=== PATIENT | female | born 1935 | race Caucasian/White ===

== ENCOUNTER 2023-11-16 09:18 | Emergency (ER) | payer MEDICARE, BC, SELFPAY ==
[2023-11-16] VITALS (7 sets, daily range): BP systolic 166–237; BP diastolic 77–95; BMI 21.7
--- NOTE | 2023-11-16 09:30 | ED.GENMED ---
History of Present Illness
General
Chief Complaint: Blood Pressure Problem
Source: patient and ambulance crew
Time Seen by Provider: 11/16/23 09:20
Travel History
Have you had any contact with someone who has COVID-19?: No
Do you have any symptoms of coronavirus? Fever > 100 degrees, chills, cough, shortness of breath, sore throat, loss of taste or smell, muscle aches, or headache?: No
History of Present Illness
History of Present Illness:
87-year-old female with past medical history of dementia, hypertension, hyperlipidemia presenting from [facility] for evaluation of elevated blood pressure this morning, patient also reportedly with some cold/flulike symptoms with patient endorsing
a mild sore throat and EMS reporting that she has had some increased coughing and bodyaches. Patient's history is somewhat limited due to her history of dementia and she is only noting a little bit of a sore throat on the right-hand side during my
evaluation. There is no reported fever. Patient unsure if she was given her blood pressure medication this morning. EMS believes the patient was tested for COVID but overall unsure of the results.
Past History
Past History
ED Past Medical History: HTN, Hypercholesterolemia and Other (Dementia)
ED Past Surgical History: None
Social History
Tobacco: Non-smoker
Alcohol: None
Drug: None
Personal:
Living: alf
Review of Systems
Review of Systems
All Other Systems: ROS reviewed and negative except as documented in HPI and ROS
Phy Exam
Physical Exam
Physical Exam:
GENERAL: Alert , in no apparent distress
EYE: clear conjunctiva b/l
HEAD: NCAT
ENT: o/p clr, mmm. No tonsillar edema or exudates, uvula midline, airway patent, no stridor or trismus
CARDIAC: Regular rate and rhythm .
LUNGS: Clear breath sounds bilaterally, no acute respiratory distress, no wheezes/rales/rhonchi
ABDOMEN: Soft, without focal tenderness, no r/g, no cvat
NEUROLOGICAL: Alert and oriented
SKIN: Warm and dry, skin intact.
MUSCULOSKELETAL: No edema, well perfused.
PSYCH: Normal and appropriate interaction.
Scores
Heart Failure Risk
Heart Failure Risk Score: Not Applicable
Heart Score for Chest Pain Patients
STEMI patient?: Not applicable
Withdrawal Assessment of Alcohol
Withdrawal Assessment Completed?: Not applicable
Course
Orders/Labs/Results
Orders:
Orders
11/16/23 09:29
Amlodipine [Norvasc] 5 mg PO NOW STA
11/16/23 09:30
Electrocardiogram (*1) Urgent
Reason for Study: Hypertension, Benign
EKG- Treatment ONCE
11/16/23 09:35
COVID-19 Antigen Urgent
Source: Nasal Swab
Complete Blood Count/With Diff Urgent
Comprehensive Metabolic Panel Urgent
Influenza A+B Rapid Molecular Urgent
[facility] Source: Nasal Swab
Specimen Description:
Abnormal Lab Results
11/16/23
09:35
WBC 4.3 L 10^3/uL
(4.8-10.8)
MCH 32.0 H pg
(27.0-31.0)
Carbon Dioxide 33 H mmol/L
(22-30)
BUN 21 H mg/dl
(7-17)
AST 49 H U/L
(14-36)
11/16/23 09:35
11/16/23 09:35
Vital Signs
Initial and Last Documented VS:
Initial Vital Signs
Temp Pulse Resp BP Pulse Ox
98.2 F 99 18 237/95 95
11/16/23 09:21 11/16/23 09:21 11/16/23 09:21 11/16/23 09:21 11/16/23 09:21
Last Documented Vital Signs
Temp Pulse Resp BP Pulse Ox
98.2 F 99 37 168/95 95
11/16/23 09:21 11/16/23 13:00 11/16/23 10:47 11/16/23 12:00 11/16/23 12:30
MDM/Problems Addressed
Differential Diagnosis Includes:
Asymptomatic hypertension, less concern for hypertensive urgency/emergency, COVID, flu or other viral etiology
MDM/Problems Addressed:
87-year-old female presenting emergency department for evaluation from her alf for 2 separate concerns. Initial concern is patient has a blood pressure that is elevated, on arrival here initial blood pressure is 237/95. Patient is
asymptomatic and without any current signs of endorgan dysfunction. Secondary concern of cold/flulike symptoms but unsure as to how long these have been going on for. Patient is noting a sore throat currently. There is no erythema/edema/exudates
on my exam. Will check labs, COVID, flu. Based off record review it appears patient is on amlodipine for her blood pressure so we will treat with this and monitor blood pressure for the time being.
Chronic conditions affecting care: HTN
Acute Exacerbation and/or Progression of Chronic Illness: HTN
*Pulse Oximetry
Patient hypoxic: no
*EKG
Interpreted by ED Provider?: Yes
Comparison EKG: no changes
Heart Rate: 90
Rate: normal
Rhythm: sinus
Ischemia: no ischemia
*Acid Cutter Interpretation
Rate: normal
Rhythm: sinus
*Critical Care Note
Total Time (30-74mins, 75-104mins- exclusive of procedures): Not Applicable
Data Reviewed
Review of Other/Old Records Reveals: Labs and Records
Comment
Comment:
On multiple reevaluations patient's blood pressure is improved. She does still have an elevated blood pressure however on rechecks it appears patient has been hypertensive in the past when evaluated at this facility. Lab reveals a mild leukopenia
which would be seen in a likely viral state which I suspect patient does have a mild viral URI. Patient is otherwise hemodynamically stable, no evidence for hypoxia and remains well-appearing and tolerating p.o. She is stable for discharge back to
her facility. I did attempt to reach out to multiple family members as patient did not have anybody present with her in the ER but had to leave voice messages for her listed family members.
ED Attending Note
-
Portions of this chart may have been created with voice recognition software.� Occasional wrong word or��sound alike� substitutions may have occurred due to the inherent limitations of voice recognition software.
Discharge Plan
Departure
Patient Disposition: Home (Routine Discharge)
Date of Disposition: 11/16/23
Time of Disposition: 11:07
Patient with high blood pressure during this ER visit?: Yes
Discharge Problem:
Hypertension, Viral syndrome
Instructions: High Blood Pressure (DC)
Prescriptions:
No Action
latanoprost 0.005 % Drops
1 drp BOTH EYES HS
Rx Instructions:
b/l eyes
atorvastatin 40 mg Tablet
40 mg PO HS
acetaminophen 325 mg Tablet
650 mg PO Q8HPRN PRN (Reason: mild pain)
cetirizine 10 mg Tablet
10 mg PO DAILY
donepezil 10 mg Tablet
10 mg PO HS
amlodipine 5 mg Tablet
5 mg PO DAILY
calcium carbonate 600 mg calcium (1,500 mg) Tablet
600 mg PO DAILY
docusate sodium 100 mg Capsule
100 mg PO BID
aspirin 81 mg Tablet,Chewable
81 mg PO DAILY
sertraline 50 mg Tablet
50 mg PO DAILY
oxybutynin chloride 10 mg Tablet Extended Release 24hr
10 mg PO DAILY
cyanocobalamin (vitamin B-12) 500 mcg Tablet
500 mcg PO DAILY
diclofenac sodium 1 % Gel
4 g TOPICAL BID PRN (Reason: apply to hip and knee)
PreserVision AREDS 2,148 mcg-113 mg-45 mg-17.4mg Tablet
1 tab PO BID
turmeric root extract 500 mg Tablet
500 mg PO HS
Referrals:
Christie Wheat CRNP [Family Provider] -
Interventions
Interventions:
*Risk Screen - Suicide Last Done: 11/16/23 09:21
*General Assessment Last Done: 11/16/23 09:21
*Neglect/Abuse Screening Last Done: 11/16/23 09:21
*ED COVID-19 Vaccine History Last Done: 11/16/23 09:21
*Nursing Disposition Last Done: 11/16/23 13:40
ED- Cardiac Assessment Last Done: 11/16/23 09:21
ED- Neurological Assessment Last Done: 11/16/23 09:21
ED- Pulmonary Assessment Last Done: 11/16/23 09:21
Discharge Date and Time
Discharge Date/Time: 11/16/23 13:51
[2023-11-16] MEDS: NORVASC 5 MG PO (09:32)
[2023-11-16 09:46] LABS: % Basophils 0.7 % (0-2); % Immature Granulocytes 0.2 % (0-0.5); % Lymphocytes 31.8 % (20.5-51.1); % Monocytes 6.3 % (1.7-9.3); Absolute Eosinophils 0.1 10^3/uL (0-0.7); Absolute Lymphocytes 1.4 10^3/uL (1.2-3.4); Absolute Monocytes 0.3 10^3/uL (0.1-0.6); Absolute Neutrophils 2.5 10^3/uL (1.4-6.5); Hematocrit 42.2 % (37.0-47.0); Hemoglobin 14.9 g/dL (12.0-16.0); Mean Corp Hgb Conc. 35.3 g/dL (33.0-37.0); Mean Corpuscular Volume 90.8 fL (81.0-99.0); Mean Platelet Volume 9.7 fL (7.4-10.4); Nucleated Red Blood Cells % 0 %; Platelet Count 133 10^3/uL (130-400); Red Blood Cell Count 4.65 10^6/uL (4.20-5.40); Red Cell Dist. Width 13.3 % (11.5-14.5); White Blood Cell Count 4.3 10^3/uL (4.8-10.8)
[2023-11-16 09:55] LABS: ALT (SGPT) 32 U/L (0-35); AST (SGOT) 49 U/L (14-36); Albumin 4.7 g/dl (3.5-5.0); Alkaline Phosphatase 92 U/L (38-126); Blood Urea Nitrogen 21 mg/dl (7-17); Calcium 9.8 mg/dl (8.4-10.2); Carbon Dioxide 33 mmol/L (22-30); Chloride 102 mmol/L (98-107); Estimated Creatinine Clearance 54 ml/min; Glucose 92 mg/dl (70-99); Potassium 4.2 mmol/L (3.5-5.1); Sodium 139 mmol/L (135-145); Total Bilirubin 1.2 mg/dl (0.2-1.3); Total Protein 7.5 g/dl (6.3-8.2); eGFR > 60.00
[2023-11-16 09:59] LABS: COVID-19 Antigen Negative (Negative)
--- NOTE | 2023-11-16 13:16 | EDRN ---
Report called to nurse at [facility]. Aware of pt return and updated on Plan of care
== END 2023-11-16 13:51 | disposition home or self-care (01) ==
LOC: EMR 09:18
PROVIDERS: Physician Assistant Medical; EMERGENCY PHYSICIAN Emergency Medicine; FAMILY PHYSICIAN Nurse Practitioner Family
DX: B34.9 Viral infection, unspecified (principal); I10 Essential (primary) hypertension; Z11.52 Encounter for screening for COVID-19
CPT/HCPCS: 99284; 80053; 85025; 87502; 87811; 93005

== ENCOUNTER → 2023-11-29 09:37 | Outpatient (REF) | payer OTHER, MEDICARE, BC, SELFPAY ==
[2023-11-29 11:10] LABS: % Eosinophils 1.9 % (0-6); % Immature Granulocytes 0.2 % (0-0.5); % Lymphocytes 21.2 % (20.5-51.1); % Monocytes 9.6 % (1.7-9.3); % Neutrophils 66.1 % (42.2-75.2); Absolute Basophils 0.1 10^3/uL (0-0.2); Absolute Eosinophils 0.1 10^3/uL (0-0.7); Absolute Lymphocytes 1.2 10^3/uL (1.2-3.4); Absolute Monocytes 0.6 10^3/uL (0.1-0.6); Absolute Neutrophils 3.8 10^3/uL (1.4-6.5); Hematocrit 32.2 % (37.0-47.0); Hemoglobin 10.7 g/dL (12.0-16.0); Mean Corp Hgb Conc. 33.2 g/dL (33.0-37.0); Mean Corpuscular Hgb 31.6 pg (27.0-31.0); Mean Platelet Volume 9.9 fL (7.4-10.4); Nucleated Red Blood Cells % 0 %; Platelet Count 186 10^3/uL (130-400); Red Blood Cell Count 3.39 10^6/uL (4.20-5.40); Red Cell Dist. Width 14.3 % (11.5-14.5); White Blood Cell Count 5.8 10^3/uL (4.8-10.8)
== END ==
LOC: OLABP 09:37
PROVIDERS: ATTENDING PHYSICIAN Family Medicine
DX: S72.002D Fracture of unspecified part of neck of left femur, subsequent encounter for closed fracture with routine healing (principal); W19.XXXD Unspecified fall, subsequent encounter; M25.552 Pain in left hip; R26.2 Difficulty in walking, not elsewhere classified; M62.81 Muscle weakness (generalized); M81.0 Age-related osteoporosis without current pathological fracture; E78.5 Hyperlipidemia, unspecified; I10 Essential (primary) hypertension; N32.81 Overactive bladder; G31.84 Mild cognitive impairment of uncertain or unknown etiology; H40.9 Unspecified glaucoma; F32.9 Major depressive disorder, single episode, unspecified
CPT/HCPCS: 36415; 85025